=== PATIENT | male | born 1960 | race Caucasian/White ===

== ENCOUNTER 2016-05-25 12:20 | Outpatient (CLI) | END 2016-05-25 12:21 | disposition home or self-care (01) | LOC: LAB 12:20 | PROVIDERS: ATTEND Family Medicine | DX: R94.5 Abnormal results of liver function studies (principal) | CPT/HCPCS: 36415; 87522 ==

== ENCOUNTER 2018-05-22 09:02 | Day surgery (SDC) | payer OTHER ==
[2018-05-22] MEDS ORDERED: LIDOCAINE 1% 20 ML MDV ID STA (09:41)
[2018-05-22 09:45] VITALS: TEMP 98
[2018-05-22] MEDS ORDERED: VERSED ONE (11:00)
[2018-05-22] MEDS ORDERED: DIPRIVAN 20 ML VIAL IVP ONE (11:00)
[2018-05-22 12:31] VITALS: BP 132/678
--- NOTE | 2018-05-23 08:55 | OP ---
PROCEDURE: COLONOSCOPY TO THE CECUM WITH SNARE POLYPECTOMY. ENDOSCOPIST: Michael SIMENTAL M.D. INDICATION: SCREENING. INSTRUMENT: PCFH-190. MEDICATION: PER ANESTHESIA. PROCEDURE: The patient was positioned for colonoscopy. The digital rectal exam was negative. The colonoscope was inserted through the anus and advanced to the cecum. The cecum was identified using the ileocecal valve and the appendiceal orifice as landmarks. The scope was slowly withdrawn through an adequately prepped colon. [place] Bowel Prep Score equals 9. Small polyp in the ascending colon removed using cold snare polypectomy. Small polyp at 30cm removed using cold snare polypectomy. Diverticulosis noted in the left colon. The retroflex exam was otherwise normal. Withdraw time 12 minutes and 10 seconds. PLAN: 1. Repeat examination in 08-25 pending the results of his pathology CC: Dr. Charo VELEZ
== END 2018-05-22 12:00 | disposition home or self-care (01) ==
LOC: SURG 09:02
PROVIDERS: ATTEND Internal Medicine Gastroenterology
DX: Z12.11 Encounter for screening for malignant neoplasm of colon (principal); K63.5 Polyp of colon; D12.2 Benign neoplasm of ascending colon; D12.5 Benign neoplasm of sigmoid colon